=== PATIENT | female | born 1965 | race American Indian/Alaskan Native ===

== ENCOUNTER 2018-04-10 22:46 | Emergency (ER) | payer MEDICAID ==
[2018-04-10 23:25] VITALS: BP 119/77
[2018-04-11 03:35] LABS: Bilirubin,Urine NEG (Negative); Blood,Urine SM (Negative); Color,Urine Blue (Yellow); Mucus,Urine FEW /HPF; Protein,Urine <15 mg/dL mg/dL (Negative)
[2018-04-11 03:44] LABS: HCG Qualitative,Urine Negative (Negative)
--- NOTE | 2018-04-11 04:44 | Emergency Department Report ---
ED Female HPI - General Chief complaint: Urogenital-Female Stated complaint: VAGINAL BLEEDING/ITCHING Time Seen by Provider: 04/11/18 04:33 Source: patient Mode of arrival: Ambulatory Limitations: No Limitations - History of Present Illness Initial comments: 52-year-old -[place] female presents to the ED with vaginal itching that started yesterday. Patient reports that she was self medicating herself with vaginal cream for the itching is and swelling got worse. Patient tried to use a vaginal suppository and reports she has small amount of vaginal bleeding. Patient denies any fever or chills no nausea no vomiting no abdominal pain no pelvic pain. Patient has a past medical history of hypertension. MD Complaint: vaginal discharge, dysuria -: days(s) (1) Location: labia, perineum Severity: moderate Severity scale (0 -10): 7 Quality: other (itching) Consistency: constant Improves with: none Worsens with: none Are you Now?: No Last Menstrual Period: 02/15/18 EDC: 11/22/18 Associated Symptoms: vaginal discharge, vaginal bleeding, dysuria - Related Data Sexually active: Yes ( with ) Allergies Allergy/AdvReac Type Severity Reaction Status Date / Time No Known Allergies Allergy Unverified 04/10/18 23:25 ED Review of Systems ROS: Stated complaint: VAGINAL BLEEDING/ITCHING Other details as noted in HPI Constitutional: denies: chills, fever Gastrointestinal: denies: abdominal pain, nausea, diarrhea Genitourinary: dysuria, discharge ED Past Medical Hx - Past Medical History Previous Medical History?: Yes Hx Hypertension: Yes Additional medical history: Anemia - Surgical History Past Surgical History?: Yes Additional Surgical History: c section - Social History Smoking Status: Never Smoker Substance Use Type: None ED Physical Exam - General Limitations: No Limitations General appearance: alert, in no apparent distress - ENT ENT exam: Present: mucous membranes moist - Respiratory Respiratory exam: Present: normal lung sounds bilaterally. Absent: respiratory distress - Cardiovascular Cardiovascular Exam: Present: regular rate, normal rhythm. Absent: systolic murmur, diastolic murmur, rubs, gallop - GI/Abdominal GI/Abdominal exam: Present: soft, normal bowel sounds - External exam: Present: normal external exam Speculum exam: Present: vaginal discharge (yellowish greenish discharge) Bi-manual exam: Present: normal bi-manual exam. Absent: cervical motion tendernes, adnexal tenderness, uterine enlargement, uterine tenderness - Extremities Exam Extremities exam: Present: normal inspection, full ROM - Back Exam Back exam: Present: normal inspection, full ROM - Neurological Exam Neurological exam: Present: alert, oriented X3 - Psychiatric Psychiatric exam: Present: normal affect, normal mood - Skin Skin exam: Present: warm, dry, intact, normal color. Absent: rash ED Course Vital Signs 04/10/18 23:21 Temperature 99.3 F Pulse Rate 96 H Respiratory 17 Rate Blood Pressure 119/77 O2 Sat by Pulse 99 Oximetry ED Medical Decision Making - Medical Decision Making Patient has been evaluated by this provider fast track. Pelvic exam done with wet prep sent to lab. Urinalysis shows patient has elevated WBCs, positive nitrates small amount of blood.. We'll treat patient for urinary tract infection. Will place patient on Macrobid 100 mg twice a day 7 days. Patient wet prep came active positive for Trichomonas as well as bacterial vaginosis. We will treat patient with Rocephin 250 mg IM, azithromycin 1 g by mouth, Flagyl 2 g by mouth. Critical care attestation.: If time is entered above; I have spent that time in minutes in the direct care of this critically ill patient, excluding procedure time. ED Disposition Clinical Impression: Trichomonas vaginalis (TV) infection, BV (bacterial vaginosis), STD (female) Disposition: DC-01 TO HOME OR SELFCARE Is pt being admited?: No Does the pt Need Aspirin: No Condition: Stable Instructions: Bacterial Vaginosis (ED), Trichomoniasis (ED), Safe Sex (ED), Sexually Transmitted Diseases (ED) Additional Instructions: Please refrain from having intercourse and to your partner is tested and treated. You can bring your picture ID back to medical records to obtain the rest of your cultures. Referrals: LOLY RUDOLPH MD [Primary Care Provider] - 3-5 Days Forms: STI Treatment and Prevention
[2018-04-11] MEDS ORDERED: FLAGYL PO ONE (05:34)
[2018-04-11] MEDS ORDERED: XYLOCAINE 1% MPF 5 mL INFILTRATI ONE (05:36)
[2018-04-11] MEDS ORDERED: ROCEPHIN IM ONE (05:36)
[2018-04-11] MEDS ORDERED: ZITHROMAX PO ONE (05:36)
[2018-04-11] MEDS ORDERED: BENADRYL PO ONE (05:48)
== END 2018-04-11 06:05 | disposition home or self-care (01) ==
LOC: ED 22:46
DX: A59.01 Trichomonal vulvovaginitis (principal); N76.0 Acute vaginitis; B96.89 Other specified bacterial agents as the cause of diseases classified elsewhere; A64 Unspecified sexually transmitted disease; I10 Essential (primary) hypertension; Z86.2 Personal history of diseases of the blood and blood-forming organs and certain disorders involving the immune mechanism
CPT/HCPCS: 81001; 81025; 87210; 96372; 99284; J0696

== ENCOUNTER 2019-06-30 08:57 | Emergency (ER) | payer MEDICAID ==
[2019-06-30 09:02] VITALS: BP 163/89
[2019-06-30 09:49] LABS: Basophils # (Auto) 0.1 K/mm3 (0.0-0.1); Basophils % (Auto) 1.3 % (0.0-1.8); Eosinophils # (Auto) 0.1 K/mm3 (0.0-0.4); Eosinophils % (Auto) 1.8 % (0.0-4.3); Hematocrit 34.8 % (30.3-42.9); Hemoglobin 11.1 gm/dl (10.1-14.3); Lymphocytes % (Auto) 19.8 % (13.4-35.0); Mean Corpuscular HGB Conc 32 % (30-34); Mean Corpuscular Volume 77 fl (79-97); Monocytes # (Auto) 0.3 K/mm3 (0.0-0.8); Monocytes % (Auto) 6.7 % (0.0-7.3); Platelet Count 332 K/mm3 (140-440); Red Blood Count 4.54 M/mm3 (3.65-5.03); Red Cell Distribution Width 17.5 % (13.2-15.2)
[2019-06-30 10:04] LABS: Alanine Aminotransferase 7 units/L (7-56); Albumin 4.2 g/dL (3.9-5); BUN/Creatinine Ratio 10; Blood Urea Nitrogen 6 mg/dL (7-17); Hemolysis Index 0
[2019-06-30 10:46] LABS: INR 0.99 (0.87-1.13)
--- NOTE | 2019-06-30 11:00 | Emergency Department Report ---
ED Female HPI - General Chief complaint: Vaginal Bleeding Stated complaint: /BLEEDING/NOT SURE HOW FAR ALONG Time Seen by Provider: 06/30/19 09:14 Source: patient Mode of arrival: Ambulatory Limitations: No Limitations - History of Present Illness Initial comments: This is a 53-year-old female nontoxic, well nourished in appearance, no acute signs of distress presents to the ED with c/o of vaginal bleeding x1 day. Patient stated had a fainy positive test 3 weeks ago. Patient denies any abdominal. Stated had some pelvic pain intermittent but denies any pain now. Patient denies any vaginal discharge or foul odor. Patient denies any nausea, vomiting, chest pain, shortness of breathe, fever, chills, headache, stiff neck, numbness, tingling. Patient denies any urinary symptoms. Patient denies any allergies. MD Complaint: vaginal bleeding -: days(s) (1) Severity scale (0 -10): 0 Improves with: none Worsens with: none Associated Symptoms: vaginal bleeding. denies: vaginal discharge, abdominal pain, nausea/vomiting, fever/chills, headaches, loss of appetite, dysuria, hemat uria, rash, seizure, shortness of breath, syncope, weakness - Related Data Previous Rx's Medication Instructions Recorded Last Taken Type Nitrofurantoin Monohyd/M-Cryst 100 mg PO BID #14 capsule 04/11/18 Unknown Rx [Macrobid 100 mg Capsule] Allergies Allergy/AdvReac Type Severity Reaction Status Date / Time No Known Allergies Allergy Unverified 04/10/18 23:25 ED Review of Systems ROS: Stated complaint: /BLEEDING/NOT SURE HOW FAR ALONG Other details as noted in HPI Constitutional: denies: chills, fever Eyes: denies: eye pain, eye discharge, vision change ENT: denies: ear pain, throat pain Respiratory: denies: cough, shortness of breath, wheezing Cardiovascular: denies: chest pain, palpitations Endocrine: no symptoms reported Gastrointestinal: denies: abdominal pain, nausea, diarrhea Genitourinary: abnormal menses. denies: urgency, dysuria, discharge Musculoskeletal: denies: back pain, joint swelling, arthralgia Skin: denies: rash, lesions Neurological: denies: headache, weakness, paresthesias Psychiatric: denies: anxiety, depression Hematological/Lymphatic: denies: easy bleeding, easy bruising ED Past Medical Hx - Past Medical History Previous Medical History?: Yes Hx Hypertension: Yes Additional medical history: Anemia - Surgical History Past Surgical History?: Yes Additional Surgical History: c section - Social History Smoking Status: Never Smoker Substance Use Type: None - Medications Home Medications: Home Medications Medication Instructions Recorded Confirmed Last Taken Type Nitrofurantoin Monohyd/M-Cryst 100 mg PO BID #14 capsule 04/11/18 Unknown Rx [Macrobid 100 mg Capsule] ED Physical Exam - General Limitations: No Limitations General appearance: alert, in no apparent distress - Head Head exam: Present: atraumatic, normocephalic - Neck Neck exam: Present: normal inspection, full ROM. Absent: tenderness, meningismus, lymphadenopathy - Respiratory Respiratory exam: Present: normal lung sounds bilaterally. Absent: respiratory distress, wheezes, rales, rhonchi, stridor, chest wall tenderness, accessory muscle use, decreased breath sounds, prolonged expiratory - Cardiovascular Cardiovascular Exam: Present: regular rate, normal rhythm, normal heart sounds. Absent: bradycardia, tachycardia, irregular rhythm, systolic murmur, diastolic m urmur, rubs, gallop - GI/Abdominal GI/Abdominal exam: Present: soft, normal bowel sounds, hernia (right side upper abdominal. Reducible. No incarceration or gangrene noted.). Absent: distended, tenderness, guarding, rebound, rigid, diminished bowel sounds - Extremities Exam Extremities exam: Present: normal inspection, full ROM, normal capillary refill. Absent: tenderness - Back Exam Back exam: Present: normal inspection, full ROM. Absent: tenderness, CVA tenderness (R), CVA tenderness (L), muscle spasm, paraspinal tenderness, vertebral tenderness, rash noted - Neurological Exam Neurological exam: Present: alert, oriented X3, normal gait - Psychiatric Psychiatric exam: Present: normal affect, normal mood - Skin Skin exam: Present: warm, dry, intact, normal color. Absent: rash ED Course Vital Signs 06/30/19 09:00 Temperature 97.8 F Pulse Rate 87 Respiratory 16 Rate Blood Pressure 163/89 [Right] O2 Sat by Pulse 97 Oximetry - Reevaluation(s) Reevaluation #1: 06/30/19 11:01 Patient is speaking in full sentences with no signs of distress noted. - Consultations Consultation #1: 06/30/19 11:01 Patient has been consulted with [facility] about patient history, physical exam, and labs and patient can be discharged with follow-up with general surgeon for further evaluation with possible CT to be done then. ED Medical Decision Making - Lab Data Result diagrams: 06/30/19 09:33 06/30/19 09:33 - Medical Decision Making This is a 53-year-old female that presents with abnormal menstrual cycle. Patient is stable and was examined by me. Labs are unremarkable. Negative test. No abdominal exam. Patient has been consulted with [facility] about patient history, physical exam, and labs and no CT need at this time and patient to follow-up. Ua obtained. Quantative serum test obtained and negative for . Patient was instructed to Follow-up with a OBGYN and general surgeon doctor in 3-5 days or if symptoms worsen and continue return to emergency room as soon as possible. At time of discharge, the patient does not seem toxic or ill in appearance. No acute signs of distress noted. Patient agrees to discharge treatment plan of care. No further questions noted by the patient. Critical care attestation.: If time is entered above; I have spent that time in minutes in the direct care of this critically ill patient, excluding procedure time. ED Disposition Clinical Impression: Abnormal menstrual cycle Abdominal hernia Qualifiers: Hernia type: unspecified Obstruction and gangrene presence: without obstruction or gangrene Recurrence: non-recurrent Qualified Code(s): K46.9 - Unspecified abdominal hernia without obstruction or gangrene Disposition: DC-01 TO HOME OR SELFCARE Is pt being admited?: No Does the pt Need Aspirin: No Condition: Stable Additional Instructions: Follow-up with a OBGYN and general surgeon doctor in 3-5 days or if symptoms worsen and continue return to emergency room as soon as possible. Referrals: PRIMARY CAREMD [Primary Care Provider] - 3-5 Days EMA SNOWDEN MD [Staff Physician] - 3-5 Days RIVER ROCHE MD [Staff Physician] - 3-5 Days [facility] [Provider Group] - 3-5 Days Forms: Work/School Release Form(ED)
[2019-06-30 11:04] LABS: Partial Thromboplastin Time 24.7 Sec. (24.2-36.6)
[2019-06-30 11:19] LABS: Bacteria,Urine 1+ /HPF (Negative); Bilirubin,Urine NEG (Negative); Blood,Urine LG (Negative); Color,Urine Yellow (Yellow); Protein,Urine <15 mg/dL mg/dL (Negative); Urobilinogen,Urine < 2.0 mg/dL (<2.0)
== END 2019-06-30 11:39 | disposition home or self-care (01) ==
LOC: ED 08:57
DX: N92.6 Irregular menstruation, unspecified (principal); K46.9 Unspecified abdominal hernia without obstruction or gangrene; I10 Essential (primary) hypertension; Z79.899 Other long term (current) drug therapy
CPT/HCPCS: 36415; 80053; 81001; 84702; 85025; 85610; 85730; 86900; 86901; 99283

== ENCOUNTER 2019-08-05 07:31 | Emergency (ER) | payer MEDICAID ==
--- NOTE | 2019-08-05 08:33 | Emergency Department Report ---
ED Lower Extremity HPI - General Chief Complaint: Extremity Injury, Lower Stated Complaint: R LEG PAIN Time Seen by Provider: 08/05/19 07:49 Source: patient Mode of arrival: Ambulatory Limitations: No Limitations - History of Present Illness Initial Comments: This is a 53-year-old -[place] female who presents to the emergency room with right lower extremity pain for 3 days. Past medical history of hypertension. Patient reports pain as constant throbbing intensity that is radiating from right hip to right foot. She states it feel like pins and needles in right leg. She is applying heating pads and taking tylenol with no change in symptoms. She denies recent injury, swelling, bruising, weakness, change in urinary or bowel pattern. MD Complaint: leg injury (right) Onset/Timin -: days(s) Injury: Leg: Right Type of Injury: unknown Place: home Severity: severe Severity scale (0 -10): 10 Improves With: rest Worsens With: weight bearing, movement Context: walking Associated Symptoms: able to partially bear weight, ambulatory Treatments Prior to Arrival: NSAIDS - Related Data Previous Rx's Medication Instructions Recorded Last Taken Type Nitrofurantoin Monohyd/M-Cryst 100 mg PO BID #14 capsule 04/11/18 Unknown Rx [Macrobid 100 mg Capsule] Ibuprofen [Motrin 800 MG tab] 800 mg PO Q8HR PRN #15 tablet 08/05/19 Unknown Rx Menthol/Camphor [[place] 18 gm TP QID #1 oint...g. 08/05/19 Unknown Rx Ointment] Methocarbamol [Robaxin] 500 mg PO BID PRN #15 tablet 08/05/19 Unknown Rx Allergies Allergy/AdvReac Type Severity Reaction Status Date / Time No Known Allergies Allergy Verified 08/05/19 07:33 ED Review of Systems ROS: Stated complaint: R LEG PAIN Other details as noted in HPI Constitutional: denies: chills, fever Respiratory: denies: cough, shortness of breath, wheezing Cardiovascular: denies: chest pain, palpitations Gastrointestinal: denies: abdominal pain, nausea, diarrhea Musculoskeletal: arthralgia (right leg pain). denies: back pain, joint swelling Skin: denies: rash, lesions Neurological: denies: headache, weakness, paresthesias Psychiatric: denies: anxiety, depression ED Past Medical Hx - Past Medical History Hx Hypertension: Yes Additional medical history: Anemia - Surgical History Additional Surgical History: c section - Social History Smoking Status: Never Smoker Substance Use Type: None - Medications Home Medications: Home Medications Medication Instructions Recorded Confirmed Last Taken Type Nitrofurantoin Monohyd/M-Cryst 100 mg PO BID #14 capsule 04/11/18 Unknown Rx [Macrobid 100 mg Capsule] Ibuprofen [Motrin 800 MG tab] 800 mg PO Q8HR PRN #15 tablet 08/05/19 Unknown Rx Menthol/Camphor [[place] 18 gm TP QID #1 oint...g. 08/05/19 Unknown Rx Ointment] Methocarbamol [Robaxin] 500 mg PO BID PRN #15 tablet 08/05/19 Unknown Rx ED Physical Exam - General Limitations: No Limitations General appearance: alert, in no apparent distress, obese (morbidly) - Neck Neck exam: Present: normal inspection - Respiratory Respiratory exam: Present: normal lung sounds bilaterally. Absent: respiratory distress - Cardiovascular Cardiovascular Exam: Present: regular rate, normal rhythm. Absent: systolic murmur, diastolic murmur, rubs, gallop - GI/Abdominal GI/Abdominal exam: Present: soft, normal bowel sounds. Absent: distended, tenderness, guarding, rebound, rigid - Back Exam Back exam: Present: full ROM, tenderness (midline TTP L2-3, no step-off, swelling, erythema, or deformity), other (positive straight leg test right). Absent: muscle spasm, rash noted - Neurological Exam Neurological exam: Present: alert, oriented X3, normal gait - Expanded Neurological Exam Expanded Patient oriented to: Present: person, place, time Speech: Present: fluid speech Sensory exam: Lower Extremity Light Touch: Normal, Lower Extremity Pin Prick: Normal, Lower Extremity Temperature: Normal, LE 2 Point Discrimination: Normal Motor strength exam: RLE: 5, LLE: 5 DTR: knee (R): 4+, knee (L): 4+, ankle (R): 4+, ankle (L): 4+ Best Eye Response (Daniela): (4) open spontaneously Best Motor Response ([place]): (6) obeys commands Best Verbal Response ([place]): (5) oriented Daniela Total: 15 - Psychiatric Psychiatric exam: Present: normal affect, normal mood - Skin Skin exam: Present: warm, dry, intact, normal color. Absent: rash ED Course Vital Signs 08/05/19 08/05/19 08/05/19 07:36 10:22 10:29 Temperature 98.3 F Pulse Rate 95 H 64 Respiratory 20 18 16 Rate Blood Pressure 158/107 Blood Pressure 122/80 [Left] O2 Sat by Pulse 96 96 100 Oximetry ED Lower Extremity MDM - Radiology Data Radiology results: report reviewed LUMBAR SPINE 3 VIEWS INDICATION / CLINICAL INFORMATION: low back pain COMPARISON: None available. FINDINGS: BONES / JOINT(S): No acute fracture or subluxation. Mild/moderate DDD scattered diffusely. Facet DJD greater inferiorly. SOFT TISSUES: No significant abnormality. ADDITIONAL FINDINGS: None. - Medical Decision Making Patient is stable and examined by me. Xray of L-Spine obtained and normal exam. Past medical history of hypertension. There is midline TTP L2-3, no step-off, swelling, erythema, or deformity Blood pressure trending down. No acute signs of distress noted. Given Toradol 30 mg IM. Positive straight leg tenderness right lower extremity. Patient will be treated for sciatica of right lower extremity. Start tiger balm, robaxin, and ibuprofen. Patient agrees to ED plan of care. Follow up with PCP in 2-3 days. Critical care attestation.: If time is entered above; I have spent that time in minutes in the direct care of this critically ill patient, excluding procedure time. ED Disposition Clinical Impression: Acute sciatica Low back pain Qualifiers: Chronicity: acute Back pain laterality: midline Sciatica presence: with sciatica Sciatica laterality: sciatica of right side Qualified Code(s): M54.41 - Lumbago with sciatica, right side Disposition: TO HOME OR SELFCARE Is pt being admited?: No Condition: Stable Instructions: Sciatica (ED), Lumbar Radiculopathy (ED) Additional Instructions: Avoid over extending back or improper body mechanics. Take pain medication every 6-8 hours as needed for pain. Apply ice or heat for 20 minutes on and 1 hour off. Report any signs or symptoms of weakness, numbness, fevers, bowel or bladder dysfunction, or sexual dysfunction. Prescriptions: Ibuprofen [Motrin 800 MG tab] 800 mg PO Q8HR PRN #15 tablet PRN Reason: Pain , Severe (7-10) Methocarbamol [Robaxin] 500 mg PO BID PRN #15 tablet PRN Reason: Muscle Spasm Menthol/Camphor [[place] Ointment] 18 gm TP QID #1 oint...g. Referrals: [facility] [Outside] - 3-5 Days MECHELLE GAINES MD [Staff Physician] - 3-5 Days CHEL GOMEZ DO [Staff Physician] - 3-5 Days Forms: Work/School Release Form(ED) Time of Disposition: 10:12
[2019-08-05] MEDS ORDERED: KETOROLAC 30 MG/1 ML INJ IM ONE (08:39)
--- NOTE | 2019-08-05 09:11 | XRay Report ---
LUMBAR SPINE 3 VIEWS INDICATION / CLINICAL INFORMATION: low back pain COMPARISON: None available. FINDINGS: BONES / JOINT(S): No acute fracture or subluxation. Mild/moderate DDD scattered diffusely. Facet DJD greater inferiorly. SOFT TISSUES: No significant abnormality. ADDITIONAL FINDINGS: None. Signer Name: Lobo Eugene MD Signed: 08/05/2019 9:07 AM Workstation Name: [id number]
[2019-08-05 10:32] VITALS: BP 122/80
== END 2019-08-05 10:41 | disposition home or self-care (01) ==
LOC: ED 07:31
DX: M54.41 Lumbago with sciatica, right side (principal); I10 Essential (primary) hypertension; D64.9 Anemia, unspecified; Z79.899 Other long term (current) drug therapy
CPT/HCPCS: 72100; 96372; 99283; J1885

== ENCOUNTER 2021-01-06 15:27 | Emergency (ER) | payer MEDICAID, OTHER ==
[2021-01-06 15:39] VITALS: BP 145/93
[2021-01-06] MEDS ORDERED: ONDANSETRON 4 MG ODT TAB PO ONE (15:59)
[2021-01-06] MEDS ORDERED: BUTALB/ACETAMINOPHEN/CAFFEINE TAB PO ONE (15:59)
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
--- NOTE | 2021-01-06 17:15 | XRay Report ---
LUMBAR SPINE 3 VIEWS INDICATION / CLINICAL INFORMATION: back pain. COMPARISON: None available. FINDINGS: VERTEBRAE: No acute fracture. No significant malalignment. DISC SPACES / FACET JOINTS:Moderate multilevel degenerative changes are noted of the lumbar spine wit h multiple levels of facet arthropathy being the prominent finding. These findings are most severe at L4-L5 and L5-S1. PARASPINAL SOFT TISSUES:No significant abnormality. ADDITIONAL FINDINGS: Soft tissue calcic location noted over the abdomen. Signer Name: Edmond Ca MD Signed: 01/06/2021 5:10 PM Workstation Name: [id number]
--- NOTE | 2021-01-06 17:33 | XRay Report ---
THORACIC SPINE 3 VIEWS INDICATION / CLINICAL INFORMATION: back pain. COMPARISON: None available. FINDINGS: VERTEBRAE: No acute fracture. No significant malalignment. DISC SPACES / FACET JOINTS:Moderate multilevel degenerative changes are noted of the thoracic spine. PARASPINAL SOFT TISSUES:No significant abnormality. ADDITIONAL FINDINGS: None. Signer Name: Edmond Ca MD Signed: 01/06/2021 5:29 PM Workstation Name: [id number]
== END 2021-01-06 17:50 | disposition home or self-care (01) ==
LOC: ED 15:27
DX: S16.1XXA Strain of muscle, fascia and tendon at neck level, initial encounter (principal); S39.012A Strain of muscle, fascia and tendon of lower back, initial encounter; R51.9 Headache, unspecified; I10 Essential (primary) hypertension; Z98.890 Other specified postprocedural states; Z79.899 Other long term (current) drug therapy; V49.59XA Passenger injured in collision with other motor vehicles in traffic accident, initial encounter; Y93.89 Activity, other specified; Y92.410 Unspecified street and highway as the place of occurrence of the external cause; Y99.8 Other external cause status
CPT/HCPCS: 70450; 72070; 72100; 72125; Q0162